=== PATIENT | male | born 1940 | race Caucasian/White ===

== ENCOUNTER 2019-01-03 06:22 | Day surgery (SDC) | payer OTHER ==
[~2019-01-03] VITALS: Ht 172.7 cm; Wt 72.6 kg
[~2019-01-03 06:22] MED LIST: AMLO5TAB15 PO; ASPI-404 PO; CALC600T4 PO; CETI1TAB36 PO; CHOL20007 PO; LOSA-69 PO; NITR0.4S29 SL
[2019-01-03] MEDS ORDERED: LIDOCAINE 2%HCL (LOCAL ANESTH.) INJ 20ML MDV ONE (07:25)
[2019-01-03] MEDS ORDERED: IODIXANOL 320MG/ML 100ML BTL IV ONE ×2 (07:26)
[2019-01-03] MEDS ORDERED: ANGIOMAX 250 MG VIAL IV ONE (07:39)
[2019-01-03] MEDS ORDERED: MIDAZOLAM HCL 1MG/1ML-2 ML VIAL ONE (07:39)
[2019-01-03] MEDS ORDERED: VERAPAMIL 2.5MG/ML INJ 2ML VIAL IV ONE (07:39)
[2019-01-03] MEDS ORDERED: fentaNYL CITRATE 100 MCG/2 ML VL ONE (07:39)
[2019-01-03] MEDS ORDERED: SODIUM CHL 0.9% 0 ML ONE (07:40)
[2019-01-03] MEDS ORDERED: HEPARIN SODIUM (PORCINE) 5000 UNITS/ML 1ML VIAL ONE (07:53)
[2019-01-03] MEDS ORDERED: HYDROcodone-ACET 5/325MG TAB PO PRN (08:30)
[2019-01-03] MEDS ORDERED: ACETAMINOPHEN 500 MG TAB PO PRN (08:30)
== END 2019-01-03 15:40 | disposition home or self-care (01) ==
LOC: CATH 06:22
PROVIDERS: ATTEND Internal Medicine
DX: I25.119 Atherosclerotic heart disease of native coronary artery with unspecified angina pectoris (principal); I08.0 Rheumatic disorders of both mitral and aortic valves; I10 Essential (primary) hypertension; E78.5 Hyperlipidemia, unspecified; K80.20 Calculus of gallbladder without cholecystitis without obstruction; C61 Malignant neoplasm of prostate; Z87.891 Personal history of nicotine dependence; Z79.82 Long term (current) use of aspirin; Z79.899 Other long term (current) drug therapy
CPT/HCPCS: 93306; 93458; C1769; C1894; J1644; J2250; J3010; J7030; Q9967; 99152

== ENCOUNTER 2019-09-04 10:07 | Inpatient (IN) | payer OTHER ==
[~2019-09-04] VITALS: Ht 172.7 cm; Wt 68.0 kg
[2019-09-04] MEDS ORDERED: SODIUM CHLORIDE 0.9% 1,000 ML IV ONE ×2 (10:48→12:15)
[2019-09-04] MEDS ORDERED: PROMETHAZINE HCL 25 MG/ML 1ML IV PRN (11:00)
[2019-09-04] MEDS ORDERED: MORPHINE SULFATE 4 MG/ML SYR/VIAL IV ONE (11:00)
[2019-09-04 11:01] LABS: Basophils # (auto) 0 10 ^3/uL (0-0.2); Basophils % (auto) 0.2 % (0.0-2.0); Eosinophils # (auto) 0 10 ^3/uL (0-0.8); Hematocrit 49.9 % (41.0-53.0); Hemoglobin 16.5 g/dL (13.5-17.5); Lymphocytes # (auto) 1.5 10 ^3/uL (0.4-5.4); Lymphocytes % (auto) 8.2 % (10.0-50.0); Mean Corpuscular Hemoglobin 31.1 pg (28.0-32.0); Mean Corpuscular Hgb Conc. 33.1 g/dL (32.0-36.0); Mean Corpuscular Volume 94.2 fL (80.0-100.0); Monocytes % (auto) 5.2 % (0.0-12.0); Neutrophils # (auto) 16.3 10 ^3/uL (1.6-8.6); Neutrophils % (auto) 86.4 % (37.0-80.0); Platelet Count (auto) 327 10^3/uL (140-450); Red Cell Distribution Width 14.3 % (11.8-14.3); White Blood Cell 18.8 10^3/uL (4.4-10.8)
[2019-09-04 11:15] LABS: Albumin 3.8 g/dL (3.4-5.0); Anion Gap 13 (5-15); Blood Urea Nitrogen 24 mg/dL (7-18); Calcium 9.5 mg/dL (8.5-10.1); Carbon Dioxide 25 mmol/L (21-32); Chloride 100 mmol/L (98-107); Glucose 182 mg/dL (74-106); Potassium 4.3 mmol/L (3.5-5.1); Sodium 138 mmol/L (136-145)
[2019-09-04 11:23] LABS: Alanine Aminotransferase 135 U/L (16-61); Alkaline Phosphatase 556 U/L (45-117); Aspartate Aminotransferase 79 U/L (15-37); BUN/Creatinine Ratio 22.6; Bilirubin, Total 0.8 mg/dL (0.2-1.0); GFR African American 87 mL/min; GFR Non-African American 72 mL/min; Lipase 15239 U/L (73-393)
[2019-09-04] MEDS ORDERED: NITROGLYCERIN 0.4 MG SL TAB SL PRN (12:15)
[2019-09-04] MEDS ORDERED: MORPHINE SULF INJ 2 MG/ML SYRINGE 1ML IV PRN (12:15)
[2019-09-04] MEDS ORDERED: ONDANSETRON HCL 4 MG/2 ML VIAL IV PRN (12:15)
[2019-09-04] MEDS ORDERED: hydrALAZINE HCL 20 MG/ML VL IV PRN (12:15)
[2019-09-04] MEDS ORDERED: cefTRIAXone 1GM/50ML D5W 50 ML IV SCH (15:43)
[2019-09-04] MEDS: MORPHINE SULF INJ 2 MG/ML SYRINGE 1ML IV PRN ×2 (16:09→21:37)
[2019-09-04 17:00] VITALS: BP 117/63
--- NOTE | 2019-09-04 17:12 | NUR ---
PT ARRIVES UNIT VIA W/C. A/OX4. DENIED S/S ACUTE DISTRESS. UPDATE PT TO POC. ORIENTED PT TO ROOM AND MADE COMFORTABLE IN BED. BED AT LOWEST POSITION. CALL LIGHT AND BELONGINGS WITHIN REACH. WILL CONT TO MONITOR.
--- NOTE | 2019-09-04 20:15 | NUR ---
Opening Shift Note Assumed care of patient, awake and alert, oriented x 4, follows direction, clear speech. On room air with even and unlabored respirations, no S/S of distress/SOB. Abd soft but tender upon palpations. Patient turns independently in bed and ambulates with steady gait. PIV right forearm intact and patent. Bed in lowest locked position with side rails up x 2 and call light within reach. Instructed on POC and to call for assist PRN, will continue to monitor for changes Q1hr and PRN.
[2019-09-04 22:00] VITALS: BP 158/78
[2019-09-05 05:00] VITALS: BP 152/84
[2019-09-05 06:04] LABS: Basophils # (auto) 0 10 ^3/uL (0-0.2); Basophils % (auto) 0.2 % (0.0-2.0); Eosinophils # (auto) 0 10 ^3/uL (0-0.8); Hematocrit 47.8 % (41.0-53.0); Hemoglobin 16.2 g/dL (13.5-17.5); Lymphocytes # (auto) 1.5 10 ^3/uL (0.4-5.4); Lymphocytes % (auto) 6.9 % (10.0-50.0); Mean Corpuscular Hemoglobin 31.7 pg (28.0-32.0); Mean Corpuscular Hgb Conc. 33.8 g/dL (32.0-36.0); Mean Corpuscular Volume 93.8 fL (80.0-100.0); Monocytes # (auto) 1.4 10 ^3/uL (0-1.3); Monocytes % (auto) 6.3 % (0.0-12.0); Neutrophils # (auto) 18.5 10 ^3/uL (1.6-8.6); Neutrophils % (auto) 86.6 % (37.0-80.0); Platelet Count (auto) 275 10^3/uL (140-450); Red Cell Distribution Width 14.7 % (11.8-14.3); White Blood Cell 21.4 10^3/uL (4.4-10.8)
[2019-09-05 06:21] LABS: Calcium 8.3 mg/dL (8.5-10.1); Potassium 4.2 mmol/L (3.5-5.1)
[2019-09-05 06:29] LABS: Bilirubin, Total 3.1 mg/dL (0.2-1.0); Total Protein 6.7 g/dL (6.4-8.2)
[2019-09-05 06:36] LABS: BUN/Creatinine Ratio 28.4
--- NOTE | 2019-09-05 06:56 | NUR ---
Closing note patient resting in bed with even and unlabored respirations, no s/s of distress or SOB. Bed in lowest locked position with side rails up x 2 and call light within reach.
--- NOTE | 2019-09-05 07:34 | NUR ---
Opening Shift Note Assumed care of patient, awake and alert, oriented x 4. On room air with even and unlabored respirations, no S/S of distress/SOB. Abd soft but tender upon palpations. Patient turns independently in bed and ambulates with steady gait. Bed in lowest locked position with side rails up x 2 and call light within reach. Instructed on POC and to call for assist PRN, will continue to monitor for changes Q1hr and PRN.
[2019-09-05] MEDS ORDERED: VANCOMYCIN PER PHARMACY 0 MG IV SCH (08:15)
--- NOTE | 2019-09-05 08:15 | NUR ---
MD Mic PARK CALLED MD UPDATED ON PT STATUS. NEW ORDERS RECEIVED. WILL IMPLEMENT ORDERS STAT.
[2019-09-05] MEDS: SODIUM CHLORIDE 0.9% 1,000 ML IV SCH ×3 (08:46→22:32)
[2019-09-05] MEDS: PIPERACILLIN-TAZOB 3.375GM 100 ML IV SCH ×3 (08:47→18:06)
[2019-09-05 09:00] VITALS: BP 149/82
[2019-09-05] MEDS ORDERED: VANCOMYCIN 1GM/250ML 250 ML IV SCH (11:00)
--- NOTE | 2019-09-05 11:20 | NUR ---
IV insertion IV access obtained, via clean sterile technique by inserting 20 gauge catheter at RIGHT FOREARM after 2 attempt(s). IV secured properly. No trauma to site. Patient tolerated well.
[2019-09-05] MEDS: VANCOMYCIN 1GM/250ML 250 ML IV SCH ×2 (12:09→23:53)
--- NOTE | 2019-09-05 12:45 | NUR ---
ROUNDING MD PARK AT BEDSIDE. ALL QUESTIONS AND CONCERNS ADDRESSED AT THIS TIME.
[2019-09-05 13:00] VITALS: BP 138/85
[2019-09-05 13:04] LABS: Basophils # (auto) 0.1 10 ^3/uL (0-0.2); Basophils % (auto) 0.4 % (0.0-2.0); Eosinophils # (auto) 0 10 ^3/uL (0-0.8); Hematocrit 47.2 % (41.0-53.0); Hemoglobin 15.8 g/dL (13.5-17.5); Lymphocytes # (auto) 1.9 10 ^3/uL (0.4-5.4); Lymphocytes % (auto) 8.6 % (10.0-50.0); Mean Corpuscular Hemoglobin 31.3 pg (28.0-32.0); Mean Corpuscular Hgb Conc. 33.5 g/dL (32.0-36.0); Mean Corpuscular Volume 93.6 fL (80.0-100.0); Monocytes # (auto) 1.3 10 ^3/uL (0-1.3); Monocytes % (auto) 5.8 % (0.0-12.0); Neutrophils # (auto) 19.2 10 ^3/uL (1.6-8.6); Neutrophils % (auto) 85.2 % (37.0-80.0); Nucleated Red Blood Cells % 0.1 %; Platelet Count (auto) 268 10^3/uL (140-450); Red Blood Cells 5.04 10^6/uL (4.5-5.90); Red Cell Distribution Width 14.7 % (11.8-14.3); White Blood Cell 22.6 10^3/uL (4.4-10.8)
[2019-09-05 13:17] LABS: BUN/Creatinine Ratio 25.5; Calcium 8.1 mg/dL (8.5-10.1); Potassium 4.1 mmol/L (3.5-5.1)
--- NOTE | 2019-09-05 13:26 | NUR ---
PAGED MD Sheeab CHEATHAM RE: MD XAVIER DENT. WANTS TO KNOW IF PATIENT IS CLEAR FOR D/C AND IF THEY MAY BE PUT ONTO CLEAR LIQUID DIET. ACCORDING TO MD Sheeba CHEATHAM PT LIPASE LEVEL IS STILL TOO ELEVATED AND IS NOT CLEAR FOR D/C. SHE RECOMMENDS FOR PT TO STAY ONE MORE DAY WITH REPEAT LIPASE IN MORNING. PT MAY HAVE ICE CHIPS AND POSSIBLE BE PUT ON CLEAR LIQUIDS IN THE MORNING IF LIPASE DECREASES.
--- NOTE | 2019-09-05 13:30 | NUR ---
CALL TO UPDATE MD PARK ON PT STATUS NEW ORDERS RECEIVED
[2019-09-05] MEDS ORDERED: HYDROcodone-ACET 10/325MG TAB PO PRN (13:45)
[2019-09-05] MEDS ORDERED: HYDROmorphone HCL 2 MG/ML VL IV PRN (13:45)
[2019-09-05 15:17] LABS: Urine Amorphous Crystal MOD /hpf (None Seen); Urine Bacteria NONE SEEN /hpf (None Seen); Urine Blood Negative /uL (Negative); Urine Specific Gravity 1.034 (1.001-1.035); Urine WBC 4 /hpf (0 - 3)
[2019-09-05 16:59] VITALS: BP 128/80
--- NOTE | 2019-09-05 19:50 | NUR ---
Opening Shift Note Assumed care of patient, awake and alert, oriented x 4, follows direction, clear speech. On room air with even and unlabored respirations, no S/S of distress/SOB. Patient turns independently in bed and ambulates with steady gait. patient tolerating ice chip well, denies nausea. patient reports abd pain 2/10, patient states pain is tolerable at this time, educated on pain management, patient verbalized understanding. Bed in lowest locked position with side rails up x 2 and call light within reach. Instructed on POC and to call for assist PRN, will continue to monitor for changes Q1hr and PRN.
[2019-09-05 22:00] VITALS: BP 137/87
[2019-09-06] MEDS: PIPERACILLIN-TAZOB 3.375GM 100 ML IV SCH ×3 (01:21→12:00)
[2019-09-06] MEDS: SODIUM CHLORIDE 0.9% 1,000 ML IV SCH ×2 (04:47→08:56)
[2019-09-06 05:00] VITALS: BP 139/69
[2019-09-06 05:23] LABS: Basophils # (auto) 0.1 10 ^3/uL (0-0.2); Basophils % (auto) 0.3 % (0.0-2.0); Eosinophils # (auto) 0 10 ^3/uL (0-0.8); Hematocrit 44.2 % (41.0-53.0); Hemoglobin 14.8 g/dL (13.5-17.5); Lymphocytes # (auto) 1.6 10 ^3/uL (0.4-5.4); Lymphocytes % (auto) 7.6 % (10.0-50.0); Mean Corpuscular Hemoglobin 31.5 pg (28.0-32.0); Mean Corpuscular Hgb Conc. 33.4 g/dL (32.0-36.0); Mean Corpuscular Volume 94.5 fL (80.0-100.0); Monocytes # (auto) 1.5 10 ^3/uL (0-1.3); Monocytes % (auto) 7.2 % (0.0-12.0); Neutrophils # (auto) 17.7 10 ^3/uL (1.6-8.6); Neutrophils % (auto) 84.9 % (37.0-80.0); Platelet Count (auto) 202 10^3/uL (140-450); Red Blood Cells 4.68 10^6/uL (4.5-5.90); Red Cell Distribution Width 14.4 % (11.8-14.3); White Blood Cell 20.8 10^3/uL (4.4-10.8)
[2019-09-06 05:25] LABS: BUN/Creatinine Ratio 28.4; Calcium 7.8 mg/dL (8.5-10.1); Potassium 3.7 mmol/L (3.5-5.1)
--- NOTE | 2019-09-06 07:10 | NUR ---
OPENING SHIFT NOTE ASSUMED CARE OF PATIENT FROM PARK NATURALIST RN AVERY. PATIENT IS AWAKE, ALERT, AND ORIENTED X4. PATIENT HAS NO S/S OF DISTRESS/SOB OR PAIN. INSTRUCTED PATIENT ON POC, PATIENT VERBALIZED UNDERSTANDING. BED IS IN LOWEST POSITION WITH SIDE RAILS RAISED X2, BED WHEELS LOCKED, AND CALL LIGHT IS WITHIN REACH. WILL CONTINUE TO MONITOR.
[2019-09-06 08:09] VITALS: BP 136/79
[2019-09-06 08:23] LABS: Albumin 2.5 g/dL (3.4-5.0); Bilirubin, Direct 1.5 mg/dL (0-0.2)
[2019-09-06 08:26] LABS: Bilirubin, Total 2.4 mg/dL (0.2-1.0); Total Protein 6.3 g/dL (6.4-8.2)
[2019-09-06 08:53] VITALS: BP 136/79
--- NOTE | 2019-09-06 10:10 | NUR ---
SPOKE WITH DR. CHEATHAM PER DR. CHEATHAM PATIENT CAN BE DISCHARGED WITH HOME ANTIBIOTICS IF PATIENT CAN TOLERATE CLEAR LIQUID DIET. WILL INFORM DR. PARK.
--- NOTE | 2019-09-06 11:52 | NUR ---
SPOKE WITH DR. PARK AND PER PATIENT CAN BE DISCHARGED. INFORMED MD OF LAST HEP PANEL RESULTS AND IF HE WOULD LIKE TO ORDER LIPASE LAB AFTER PATIENT EATS LUNCH. PER MD HE STATED NO AND TO DISCHARGE PATIENT AFTER HE TOLERATES LUNCH. WILL FOLLOW THROUGH WITH ORDERS.
[2019-09-06] MEDS: VANCOMYCIN 1GM/250ML 250 ML IV SCH (12:00)
[2019-09-06 12:43] VITALS: BP 126/79
[2019-09-06 15:45] VITALS: BP 136/89
== END 2019-09-06 16:29 | disposition home or self-care (01) | DRG 871 ==
LOC: ER 10:07 → TELE 10:08 → TELE-WESTW 17:22
PROVIDERS: ADMIT Internal Medicine; ATTEND Internal Medicine
DX: A41.9 Sepsis, unspecified organism (principal); K85.90 Acute pancreatitis without necrosis or infection, unspecified; C25.0 Malignant neoplasm of head of pancreas; E86.0 Dehydration; I10 Essential (primary) hypertension; K57.90 Diverticulosis of intestine, part unspecified, without perforation or abscess without bleeding; I25.10 Atherosclerotic heart disease of native coronary artery without angina pectoris; R73.9 Hyperglycemia, unspecified
CPT/HCPCS: 36415; 71046; 74176; 80048; 80053; 80076; 81001; 83690; 83735; 84484; 85025; 93005; 96365; 96375; G0378; J0696; J2543

== ENCOUNTER 2023-02-18 17:44 | Emergency (ER) | payer OTHER ==
[~2023-02-18] VITALS: Ht 172.7 cm; Wt 64.9 kg
[~2023-02-18 17:44] MED LIST changes: -AMLO5TAB15 PO; -ASPI-404 PO; -CALC600T4 PO; +CALC600T5 PO; -LOSA-69 PO; +LOSA50TA46 PO
[2023-02-18] MEDS ORDERED: PROPOFOL 10 MG/ML 20 ML IV ONE (19:00)
[2023-02-18 19:30] VITALS: PULSE 89; RESP 26; TEMP 98.6; O2SAT 97
[2023-02-18] MEDS ORDERED: TRAM50TA2 PO (21:15)
[2023-02-18 21:33] VITALS: BP 123/66; PULSE 82; RESP 16; O2SAT 100
== END 2023-02-18 21:36 | disposition home or self-care (01) ==
LOC: ER 17:44
DX: S43.004A Unspecified dislocation of right shoulder joint, initial encounter (principal); I10 Essential (primary) hypertension; Z95.1 Presence of aortocoronary bypass graft; Z90.49 Acquired absence of other specified parts of digestive tract; Z79.899 Other long term (current) drug therapy; W01.0XXA Fall on same level from slipping, tripping and stumbling without subsequent striking against object, initial encounter; Y93.89 Activity, other specified; Y92.89 Other specified places as the place of occurrence of the external cause; Y99.8 Other external cause status
CPT/HCPCS: 23650; 73030; 99152; 99285; J2704